=== PATIENT | female | born 1990 | race Caucasian/White ===

== ENCOUNTER 2017-10-05 18:17 | Emergency (ER) | payer BC, SELFPAY ==
[2017-10-05] MEDS ORDERED: Famotidine 20 MG TAB ONE (20:02)
[2017-10-05] MEDS ORDERED: diphenhydrAMINE 25 MG CAP ONE (20:02)
== END 2017-10-05 21:55 | disposition home or self-care (01) ==
LOC: ERS 18:17
DX: L50.9 Urticaria, unspecified (principal)
CPT/HCPCS: 99282

== ENCOUNTER 2019-08-01 10:00 | Outpatient (CLI) | payer BC ==
--- NOTE | 2019-08-01 11:24 | ULT ---
GALLBLADDER ULTRASOUND: Date: 08/01/2019 HISTORY: Epigastric pain. FINDINGS: The liver demonstrates increased echogenicity with focal sparing adjacent to the gallbladder. No foca l mass or intrahepatic ductal dilatation is seen. No gallstones, gallbladder wall thickening, or kami cholecystic fluid is identified. The right kidney is normal. The common duct measures 6.[address] The pancreas is not well visualized due to overlying bowel gas. No free fluid is seen in Morison 's pouch. IMPRESSION: 1. Fatty liver. 2. No evidence of cholelithiasis. POS: [facility]
== END 2019-08-01 10:01 | disposition home or self-care (01) ==
LOC: BICULT 10:00
PROVIDERS: ATTEND Internal Medicine Gastroenterology
DX: R10.13 Epigastric pain (principal); K76.0 Fatty (change of) liver, not elsewhere classified
CPT/HCPCS: 76705